=== PATIENT | male | born 1945 | race Caucasian/White ===

== ENCOUNTER 2016-10-14 17:33 | Inpatient (IN) | payer OTHER, MEDICARE ==
[~2016-10-14] VITALS: Ht 175.3 cm; Wt 81.0 kg
[2016-10-14 17:51] VITALS: BP 107/56; PULSE 102; RESP 20; TEMP 100.2
[2016-10-14] MEDS ORDERED: SODIUM CHLORIDE 0.9% FLUSH 10 ML FLUSH IVF PRN (18:15)
--- NOTE | 2016-10-14 18:18 | PD ---
HPI Chief Complaint: Medical Clearance Time Seen by Provider: 17:55 Travel History International Travel<30 days: No Contact w/Intl Traveler<30days: No Traveled to known affect area: No History of Present Illness HPI This is a 71 -year-old male with a history of hypertension, recent anemia who was undergoing an colonoscopy and upper endoscopy today. Shortly after waking up from anesthesia, he vomited and aspirated. The patient presents here with complaints of pleuritic left sided chest/lung pain and shortness of breath. He also has some mild hemoptysis. The patient denies any fevers although has a low -grade temperature here. He states this happened this afternoon. There are no other symptoms at the time of my examination. He was given Levaquin and nebulizer treatments at the surgery Center prior to being sent here. [facility] Social History Alcohol Use: No Tobacco Use: No Substance Use: No Allergies-Medications (Allergen,Severity, Reaction): Coded Allergies: No Known Allergies (Unverified , 10/14/16) Reported Meds & Prescriptions Reported Meds & Active Scripts Active Reported Metformin (Metformin HCl) 500 Mg Tab 250 Mg PO BID With meals Tizanidine (Tizanidine HCl) 4 Mg Tab 4 Mg PO TID PRN Tamsulosin (Tamsulosin HCl) 0.4 Mg Cap 0.4 Mg PO DAILY Crestor (Rosuvastatin Calcium) 40 Mg Tab 40 Mg PO DAILY Pantoprazole (Pantoprazole Sodium) 40 Mg Tab 40 Mg PO DAILY Review of Systems Except as stated in HPI: all other systems reviewed are Neg General / Constitutional: No: Fever, Chills HENT: No: Headaches, Lightheadedness, Neck Pain Cardiovascular: Positive: Chest Pain or Discomfort Respiratory: Positive: Shortness of Breath (mild), Hemoptysis, No: Cough Gastrointestinal: Positive: Vomiting (after anesthesia), No: Nausea, Abdominal Pain ( during his procedure) Musculoskeletal: No: Weakness, Pain Neurologic: No: Weakness, Dizziness, Headache Physical Exam Narrative GENERAL: Well-nourished, well-developed patient, in no acute respiratory distress. The patient is noted to be coughing. He did have an episode where he coughed up some blood-tinged phlegm. SKIN: Focused skin assessment warm/dry. HEAD: Normocephalic/atraumatic. EYES: No scleral icterus. No injection or drainage. NECK: Supple, trachea midline. No JVD or lymphadenopathy. CARDIOVASCULAR: Regular rate and rhythm without murmurs, gallops, or rubs. RESPIRATORY: Breath sounds equal bilaterally. Questionable wheezes heard at the left lung base. GASTROINTESTINAL: Abdomen soft, non-tender, nondistended. MUSCULOSKELETAL: No cyanosis, or edema. NEUROLOGICAL: Awake and alert. Cranial nerves II through XII intact. Motor grossly within normal limits. Five out of 5 muscle strength in all muscle groups. Normal speech. Data Data Last Documented VS Vital Signs Date Time Temp Pulse Resp B/P Pulse Ox O2 Delivery O2 Flow Rate FiO2 10/14/16 18:22 98 10/14/16 18:22 Nasal Cannula 2 10/14/16 17:51 100.2 102 20 107/56 Orders Complete Blood Count With Diff (10/14/16 18:01) Comprehensive Metabolic Panel (10/14/16 18:01) Iv Access Insert/Monitor (10/14/16 18:01) Ecg Monitoring (10/14/16 18:01) Oximetry (10/14/16 18:01) Oxygen Administration (10/14/16 18:01) Chest, Pa & Lat (10/14/16 18:01) Sodium Chloride 0.9% Flush (Ns Flush) (10/14/16 18:15) Albuterol Neb (Albuterol Neb) (10/14/16 18:15) Admit Order (Ed Use Only) (10/14/16 19:36) Labs Laboratory Tests Test 10/14/16 18:10 White Blood Count 7.7 TH/MM3 Red Blood Count 5.74 MIL/MM3 Hemoglobin 12.2 GM/DL Hematocrit 39.3 % Mean Corpuscular Volume 68.4 FL Mean Corpuscular Hemoglobin 21.3 PG Mean Corpuscular Hemoglobin 31.1 % Concent Red Cell Distribution Width 16.2 % Platelet Count 258 TH/MM3 Mean Platelet Volume 7.2 FL Neutrophils (%) (Auto) 89.9 % Lymphocytes (%) (Auto) 6.0 % Monocytes (%) (Auto) 3.4 % Eosinophils (%) (Auto) 0.2 % Basophils (%) (Auto) 0.5 % Neutrophils # (Auto) 6.9 TH/MM3 Lymphocytes # (Auto) 0.5 TH/MM3 Monocytes # (Auto) 0.3 TH/MM3 Eosinophils # (Auto) 0.0 TH/MM3 Basophils # (Auto) 0.0 TH/MM3 CBC Comment DIFF FINAL Differential Comment Sodium Level 140 MEQ/L Potassium Level 3.8 MEQ/L Chloride Level 105 MEQ/L Carbon Dioxide Level 25.9 MEQ/L Anion Gap 9 MEQ/L Blood Urea Nitrogen 9 MG/DL Creatinine 0.92 MG/DL Estimat Glomerular Filtration 81 ML/MIN Rate Random Glucose 80 MG/DL Calcium Level 8.6 MG/DL Total Bilirubin 0.7 MG/DL Aspartate Amino Transf 24 U/L (AST/SGOT) Alanine Aminotransferase 25 U/L (ALT/SGPT) Alkaline Phosphatase 40 U/L Total Protein 6.9 GM/DL Albumin 3.4 GM/DL MDM Medical Decision Making Medical Screen Exam Complete: Yes Emergency Medical Condition: Yes Differential Diagnosis Pneumonitis versus aspiration pneumonia versus pneumothorax Narrative Course 71-year-old male presents after he had an episode of emesis and aspirated while waking up from his GI procedure. The patient has a low-grade temperature here. His white blood cell count is normal. He has a left lower lobe pneumonia on x -ray. He been previously given Levaquin at the surgery Center. The case was discussed with Dr. Bai who admitted the patient to the hospitalist service. Diagnosis Primary Impression: Aspiration pneumonia Additional Impression: reported anemia Admitting Information Admitting Physician Requests: Admit Hussain Cox MD Oct 14, 2016 18:18
[2016-10-14 18:22] VITALS: O2SAT 98
[2016-10-14] MEDS: RESP: ALBUTEROL 2.5 MG/3 ML NEB (SCH) INH ×2 (18:30→18:34)
[2016-10-14 18:33] LABS: AUTOMATED NEUTROPHIL # 6.9 TH/MM3 (1.8-7.7); BASOPHIL % 0.5 % (0.0-2.0); EOSINOPHIL % 0.2 % (0.0-4.0); HEMATOCRIT 39.3 % (39.0-51.0); HEMO FLAGS DIFF FINAL; LYMPHOCYTE # 0.5 TH/MM3 (1.0-4.8); MEAN CELL VOLUME 68.4 FL (80.0-100.0); MEAN CORPUSCULAR HEMOGLOBIN 21.3 PG (27.0-34.0); MEAN CORPUSCULAR HGB CONC 31.1 % (32.0-36.0); MONO % 3.4 % (0.0-8.0); NEUT % 89.9 % (16.0-70.0); PLATELET COUNT 258 TH/MM3 (150-450); RED BLOOD COUNT 5.74 MIL/MM3 (4.50-5.90); RED CELL DISTRIBUTION WIDTH 16.2 % (11.6-17.2); WHITE BLOOD COUNT 7.7 TH/MM3 (4.0-11.0)
[2016-10-14] MEDS ORDERED: TIZA4TAB PO (18:33)
[2016-10-14] MEDS ORDERED: TAMS0.4C4 PO (18:33)
[2016-10-14] MEDS ORDERED: METF500T PO (18:33)
[2016-10-14] MEDS ORDERED: PANT40TA3 PO (18:33)
[2016-10-14] MEDS ORDERED: ROSU40 PO (18:33)
--- NOTE | 2016-10-14 18:52 | RADRPT ---
EXAM DATE/TIME: 10/14/2016 18:25 [place] COMPARISON: No previous studies available for comparison. INDICATIONS : Pain with breathing, possible aspiration during endoscopy. MEDICAL HISTORY : None. SURGICAL HISTORY : None. ENCOUNTER: Initial ACUITY: 1 day PAIN SCORE: 5/10 LOCATION: Left lower chest FINDINGS: Degenerative changes of the spine and cardiomegaly. There is consolidation in the left lower lobe and left midlung. No effusion. CONCLUSION: Left lower lobe airspace disease. Lalo Del Cid MD on October 14, 2016 at 18:50 Board Certified Radiologist. This report was verified electronically.
[2016-10-14 18:55] LABS: ALT (GPT) 25 U/L (12-78); ANION GAP 9 MEQ/L (5-15); AST (GOT) 24 U/L (15-37); BICARBONATE 25.9 MEQ/L (21.0-32.0); BLOOD UREA NITROGEN 9 MG/DL (7-18); CHLORIDE 105 MEQ/L (98-107); GLOMERULAR FILTRATION RATE 81 ML/MIN (>89); POTASSIUM 3.8 MEQ/L (3.5-5.1); SODIUM (NA) 140 MEQ/L (136-145)
[2016-10-14 18:57] LABS: ALKALINE PHOSPHATASE 40 U/L (45-117); TOTAL BILIRUBIN ADULT 0.7 MG/DL (0.2-1.0)
[2016-10-14 19:47] VITALS: BP 106/57; PULSE 108; RESP 20; O2SAT 92
--- NOTE | 2016-10-14 19:59 | HHI.HP ---
[facility] No Primary Care Physician Admission Diagnosis Aspiration pneumia, Diagnoses: (1) Sepsis Diagnosis: Principal (2) PNA (pneumonia) Diagnosis: Principal (3) Dehydration Diagnosis: Principal (4) DM (diabetes mellitus) Diagnosis: Principal Travel History International Travel<30 Days: No Contact w/Intl Traveler <30 Da: No Traveled to Known Affected Are: No History of Present Illness This is a 71-year-old male with a PMH of HTN who was [facility] of likely Aspiration PNA following EGD. Pt underwent EGD and had episode of nausea/vomiting following anesthesia w/ aspiration. +SOB, +wheezing. S/p Levaquin and Solu-Medrol prior to transfer. On arrival, BP 107 or 56, HR 102, O2 sat 98% on 2L NC, Temp 100.2. WBC normal however elevated neutrophil count. Chemistry unremarkable except for GFR 81. CXR with left lower lobe and left mid lung infiltrate. Review of Systems Except as stated in HPI: all other systems reviewed are Neg ROS: 14 point review of systems otherwise negative. Past Family Social History Past Medical History PMH: HTN Past Surgical History PAST SURGICAL HISTORY: Tonsillectomy, Cholecystectomy Allergies: Coded Allergies: No Known Allergies (Unverified , 10/14/16) Family History PAST FAMILY HISTORY: Reviewed. No h/o DM or CAD Social History PAST SOCIAL HISTORY: Negative for alcohol, tobacco or drugs. Physical Exam Vital Signs Vital Signs Date Time Temp Pulse Resp B/P Pulse Ox O2 Delivery O2 Flow Rate FiO2 10/14/16 19:47 108 20 106/57 92 Nasal Cannula 2 10/14/16 18:22 98 10/14/16 18:22 Nasal Cannula 2 10/14/16 17:51 100.2 102 20 107/56 Physical Exam PE: GENERAL: Pleasant elderly white male in no acute distress. HEENT: PERRLA, EOMI. No scleral icterus or conjunctival pallor. No lid lag or facial droop. CARDIOVASCULAR: Regular rate and rhythm. No obvious murmurs to auscultation. No chest tenderness to palpation. RESPIRATORY: No obvious rhonchi or wheezing. Clear to auscultation. Breath sounds equal bilaterally. GASTROINTESTINAL: Abdomen soft, non-tender, nondistended. BS normal. MUSCULOSKELETAL: Extremities without clubbing, cyanosis, or edema. No obvious deformities. NEUROLOGICAL: Awake, alert and oriented x4. No focal neurologic deficits. Moving both upper and lower extremities spontaneously. Laboratory Laboratory Tests Test 10/14/16 18:10 White Blood Count 7.7 Red Blood Count 5.74 Hemoglobin 12.2 Hematocrit 39.3 Mean Corpuscular Volume 68.4 Mean Corpuscular Hemoglobin 21.3 Mean Corpuscular Hemoglobin 31.1 Concent Red Cell Distribution Width 16.2 Platelet Count 258 Mean Platelet Volume 7.2 Neutrophils (%) (Auto) 89.9 Lymphocytes (%) (Auto) 6.0 Monocytes (%) (Auto) 3.4 Eosinophils (%) (Auto) 0.2 Basophils (%) (Auto) 0.5 Neutrophils # (Auto) 6.9 Lymphocytes # (Auto) 0.5 Monocytes # (Auto) 0.3 Eosinophils # (Auto) 0.0 Basophils # (Auto) 0.0 CBC Comment DIFF FINAL Differential Comment Sodium Level 140 Potassium Level 3.8 Chloride Level 105 Carbon Dioxide Level 25.9 Anion Gap 9 Blood Urea Nitrogen 9 Creatinine 0.92 Estimat Glomerular Filtration 81 Rate Random Glucose 80 Calcium Level 8.6 Total Bilirubin 0.7 Aspartate Amino Transf 24 (AST/SGOT) Alanine Aminotransferase 25 (ALT/SGPT) Alkaline Phosphatase 40 Total Protein 6.9 Albumin 3.4 Result Diagram: 10/14/16180910/14/161809 Assessment and Plan Problem List: (1) Sepsis ICD Code: A41.9 Status: Acute (2) PNA (pneumonia) ICD Code: J18.9 Status: Acute (3) Dehydration ICD Code: E86.0 Status: Acute (4) DM (diabetes mellitus) ICD Code: E11.9 Status: Acute Assessment and Plan A/P: 1. Sepsis: Temp 100.2, HR 102, WBC normal however elevated neutrophil count, Source-PNA. Check Blood Cultures, continue IV Abx. 2. PNA: s/p EGD w/ aspiration post-procedure, CXR w/ LLL and left midlung infiltrates, images reviewed by me. S/p Levaquin, Solu-Medrol prior to arrival. Check Blood Cultures, continue IV Abx. DuoNeb prn, Mucinex, Symbicort. 3. Dehydration: GFR 81, BUN/Creatinine normal. IVF for hydration, repeat labs in am. 4. DM: Sliding scale w/ Accu-Cheks. Hold Metformin for now. 5. DVT Prophylaxis: SCD/Teds. 6. Social work for d/c planning as needed. 7. Case discussed w/ ER physician at length. Physician Certification 2 Midnight Certification Type: Admission for Inpatient Services Order for Inpatient Services The services are ordered in accordance with Medicare regulations or non- Medicare payer requirements, as applicable. In the case of services not specified as inpatient-only, they are appropriately provided as inpatient services in accordance with the 2-midnight benchmark. Estimated LOS (days): 2 days is the estimated time the patient will need to remain in the hospital, assuming treatment plan goals are met and no additional complications. Post-Hospital Plan: Not yet determined Sheeba Ren MD Oct 14, 2016 19:59
[2016-10-14] MEDS ORDERED: ACETAMINOPHEN 325 MG TAB PO PRN (20:00)
[2016-10-14] MEDS ORDERED: Vancomycin Consult Pharmacy 1 EA OTHER SCH (20:00)
[2016-10-14] MEDS ORDERED: DEXTROSE 50% IN WATER 50 ML VIAL(D50) IV PRN (20:00)
[2016-10-14] MEDS ORDERED: MORPHINE SULFATE 4 MG/ML INJ IV PRN (20:00)
[2016-10-14] MEDS ORDERED: ACETAMINOPHEN/HYDROcodone 325 MG/5 MG TAB PO PRN (20:00)
[2016-10-14] MEDS ORDERED: BISACODYL 10 MG SUPP RECTAL PRN (20:00)
[2016-10-14] MEDS ORDERED: LACTULOSE SYRUP 20 GM/30 ML CUP PO PRN (20:00)
[2016-10-14] MEDS ORDERED: RESP: ALBUTEROL 2.5 MG/IPRATROPIUM 0.5 MG NEB (PRN) NEB (20:00)
[2016-10-14] MEDS ORDERED: SENNOSIDES 8.6 MG TAB PO PRN (20:00)
[2016-10-14] MEDS ORDERED: SODIUM CHLORIDE 0.9% FLUSH 10 ML FLUSH IV FLUSH PRN (20:00)
[2016-10-14] MEDS ORDERED: ONDANSETRON HCL 4 MG/2 ML VIAL IVP PRN (20:00)
[2016-10-14] MEDS ORDERED: MAGNESIUM HYDROXIDE SUSP 30 ML CUP PO PRN (20:00)
[2016-10-14] MEDS ORDERED: GLUCAGON 1 MG/ML VIAL OTHER PRN (20:00)
[2016-10-14] MEDS: SODIUM CHLOR 0.9% 1000 ML INJ 1,000 ML IV SCH (20:23)
[2016-10-14 21:30] VITALS: BP 103/65; PULSE 95; RESP 16; TEMP 98.7; O2SAT 94
[2016-10-14 21:47] VITALS: PULSE 96
[2016-10-14] MEDS: PIPERACIL-TAZO 4.5 GM PREMIX 100 ML IV SCH (21:59)
[2016-10-14] MEDS: guaiFENesin E.R. 600 MG TAB PO SCH (21:59)
[2016-10-14] MEDS: VANCOMYCIN INJ 1,200 MG in SODIUM CHLOR 0.9% 250 ML INJ 250 ML IV SCH (21:59)
[2016-10-14] MEDS: BUDESONIDE-FORMOTEROL 160/4.5 MCG INHALER INH SCH (21:59)
[2016-10-14] MEDS: SODIUM CHLORIDE 0.9% FLUSH 10 ML FLUSH IV FLUSH SCH (22:00)
[2016-10-14] MEDS: INSULIN ASPART SUPPLEMENTAL SCALE SQ SCH (22:01)
[2016-10-14] MEDS: DOCUSATE SODIUM 50 MG/SENNA 8.6 MG TAB PO SCH (22:01)
[2016-10-15] VITALS (7 sets, daily range): BP systolic 94–121; BP diastolic 57–68; PULSE 56–86; RESP 16–18; TEMP 98.1–99.7; O2SAT 94–96
[2016-10-15] MEDS: PIPERACIL-TAZO 4.5 GM PREMIX 100 ML IV SCH ×4 (03:20→20:21)
[2016-10-15] MEDS: SODIUM CHLOR 0.9% 1000 ML INJ 1,000 ML IV SCH (05:52)
[2016-10-15] MEDS: INSULIN ASPART SUPPLEMENTAL SCALE SQ SCH ×4 (06:23→20:20)
[2016-10-15 07:48] LABS: AUTOMATED NEUTROPHIL # 9.3 TH/MM3 (1.8-7.7); BASOPHIL % 0.4 % (0.0-2.0); EOSINOPHIL # 0.1 TH/MM3 (0-0.4); EOSINOPHIL % 0.5 % (0.0-4.0); HEMATOCRIT 34.9 % (39.0-51.0); HEMO FLAGS DIFF FINAL; LYMPH % 13.7 % (9.0-44.0); LYMPHOCYTE # 1.7 TH/MM3 (1.0-4.8); MEAN CELL VOLUME 68.2 FL (80.0-100.0); MEAN CORPUSCULAR HGB CONC 30.8 % (32.0-36.0); MONO % 9.8 % (0.0-8.0); NEUT % 75.6 % (16.0-70.0); PLATELET COUNT 241 TH/MM3 (150-450); RED BLOOD COUNT 5.11 MIL/MM3 (4.50-5.90); RED CELL DISTRIBUTION WIDTH 16.5 % (11.6-17.2); WHITE BLOOD COUNT 12.3 TH/MM3 (4.0-11.0)
[2016-10-15 08:10] LABS: ALT (GPT) 22 U/L (12-78); ANION GAP 6 MEQ/L (5-15); AST (GOT) 18 U/L (15-37); BICARBONATE 27.8 MEQ/L (21.0-32.0); BLOOD UREA NITROGEN 11 MG/DL (7-18); CHLORIDE 106 MEQ/L (98-107); GLOMERULAR FILTRATION RATE 70 ML/MIN (>89); POTASSIUM 4.2 MEQ/L (3.5-5.1); SODIUM (NA) 140 MEQ/L (136-145)
[2016-10-15 08:13] LABS: ALKALINE PHOSPHATASE 33 U/L (45-117); TOTAL BILIRUBIN ADULT 1.2 MG/DL (0.2-1.0)
[2016-10-15] MEDS ORDERED: NON-FORMULARY DRUG (Rosuvastatin (Crestor) 40 MG) PO SCH (09:00)
[2016-10-15] MEDS: VANCOMYCIN INJ 1,200 MG in SODIUM CHLOR 0.9% 250 ML INJ 250 ML IV SCH (09:09)
[2016-10-15] MEDS: SODIUM CHLORIDE 0.9% FLUSH 10 ML FLUSH IV FLUSH SCH ×2 (09:10→20:19)
[2016-10-15] MEDS: TAMSULOSIN HCL 0.4 MG CAP PO SCH (09:10)
[2016-10-15] MEDS: PANTOPRAZOLE SOD 40 MG DELAYED RELEASE TAB PO SCH (09:10)
[2016-10-15] MEDS: guaiFENesin E.R. 600 MG TAB PO SCH ×2 (09:10→20:19)
[2016-10-15] MEDS: DOCUSATE SODIUM 50 MG/SENNA 8.6 MG TAB PO SCH ×2 (09:10→20:18)
[2016-10-15] MEDS: ATORVASTATIN 80 MG TAB PO SCH (09:10)
[2016-10-15] MEDS: BUDESONIDE-FORMOTEROL 160/4.5 MCG INHALER INH SCH ×2 (11:01→20:20)
--- NOTE | 2016-10-15 12:40 | HHI.PR ---
Subjective Remarks Follow-up pneumonia. States he is doing better having pleuritic left sided chest pain. Denies shortness of breath. Still on 2 L nasal cannula. Out of bed to bathroom. Discussed with RN Objective Vitals Vital Signs Date Time Temp Pulse Resp B/P Pulse Ox O2 Delivery O2 Flow Rate FiO2 10/15/16 12:27 95 Nasal Cannula 1.00 10/15/16 11:33 98.8 71 18 109/63 95 10/15/16 08:00 98.1 68 18 109/68 95 10/15/16 04:15 98.1 81 16 98/57 95 10/15/16 00:15 98.9 86 16 105/63 94 10/14/16 21:47 96 10/14/16 21:30 98.7 95 16 103/65 94 10/14/16 19:47 108 20 106/57 92 Nasal Cannula 2 10/14/16 18:22 98 10/14/16 18:22 Nasal Cannula 2 10/14/16 17:51 100.2 102 20 107/56 I/O 10/14/16 10/14/16 10/14/16 10/15/16 10/15/16 10/15/16 07:00 15:00 23:00 07:00 15:00 23:00 Intake Total 240 ml 1219 ml Output Total 800 ml Balance 240 ml 419 ml Intake Oral 240 ml 240 ml IV Total 979 ml Output Urine Total 800 ml # Voids 0 1 # Bowel Movements 0 0 Result Diagram: 10/15/16 0708 10/15/16 0708 Imaging Last Impressions Chest X-Ray 10/14/16 1801 Signed Impressions: Service Date/Time: Friday, October 14, 2016 18:25 - CONCLUSION: Left lower lobe airspace disease. Lalo Del Cid MD Objective Remarks Well-developed, well-nourished in no distress on nasal cannula Regular rate and rhythm Clear lungs decreased breath sounds left lung Alert and oriented 3 nonfocal Procedures Non- A/P Problem List: (1) Sepsis ICD Code: A41.9 Status: Acute (2) PNA (pneumonia) ICD Code: J18.9 Status: Acute (3) Dehydration ICD Code: E86.0 Status: Resolved (4) DM (diabetes mellitus) ICD Code: E11.9 Status: Chronic Assessment and Plan 1. Sepsis: Today has leukocytosis status post steroid. Blood cultures negative to date. 2. PNA: s/p EGD w/ aspiration post-procedure, CXR w/ LLL and left midlung infiltrates, images reviewed by me. S/p Levaqdaniel, Solu-Medrol prior to arrival. Complaining of pleuritic pain. Continue IV vancomycin and Zosyn, DuoNeb prn, Mucinex, Symbicort. Pain management with Lortab and IV morphine 3. Dehydration: Improved discontinue IV fluids 4. DM: Sliding scale w/ Accu-Cheks. Restart Metformin for now. 5. DVT Prophylaxis: SCD/Teds. Patient ambulatory Discharge Planning Possible discharge in the morning Rainer Serrano MD Oct 15, 2016 12:40
[2016-10-15] MEDS ORDERED: ALBUAER3 INH (12:43)
[2016-10-15] MEDS ORDERED: HYDR-3516 PO (12:43)
[2016-10-15] MEDS: metFORMIN HCL 500 MG TAB PO SCH (20:18)
[2016-10-16 00:03] VITALS: BP 124/74; PULSE 79; RESP 18; TEMP 99.4; O2SAT 95
[2016-10-16 00:15] VITALS: PULSE 81
[2016-10-16] MEDS: PIPERACIL-TAZO 4.5 GM PREMIX 100 ML IV SCH ×2 (02:18→09:04)
[2016-10-16 04:06] VITALS: BP 105/63; PULSE 75; RESP 18; TEMP 99.9; O2SAT 95
[2016-10-16] MEDS ORDERED: VANCOMYCIN 1,500 MG/NS 500 ML IV SCH ×2 (06:00)
[2016-10-16 07:00] LABS: AUTOMATED NEUTROPHIL # 7.5 TH/MM3 (1.8-7.7); BASOPHIL # 0.1 TH/MM3 (0-0.2); BASOPHIL % 0.9 % (0.0-2.0); EOSINOPHIL # 0.2 TH/MM3 (0-0.4); EOSINOPHIL % 2.4 % (0.0-4.0); HEMATOCRIT 34.2 % (39.0-51.0); HEMO FLAGS DIFF FINAL; LYMPH % 14.7 % (9.0-44.0); LYMPHOCYTE # 1.5 TH/MM3 (1.0-4.8); MEAN CELL VOLUME 68.6 FL (80.0-100.0); MEAN CORPUSCULAR HEMOGLOBIN 21.1 PG (27.0-34.0); MEAN CORPUSCULAR HGB CONC 30.7 % (32.0-36.0); MONO % 9.9 % (0.0-8.0); NEUT % 72.1 % (16.0-70.0); PLATELET COUNT 248 TH/MM3 (150-450); RED BLOOD COUNT 4.98 MIL/MM3 (4.50-5.90); RED CELL DISTRIBUTION WIDTH 16.7 % (11.6-17.2); WHITE BLOOD COUNT 10.3 TH/MM3 (4.0-11.0)
[2016-10-16] MEDS: INSULIN ASPART SUPPLEMENTAL SCALE SQ SCH ×2 (07:00→11:24)
[2016-10-16 07:21] LABS: ALT (GPT) 18 U/L (12-78); ANION GAP 6 MEQ/L (5-15); AST (GOT) 16 U/L (15-37); BICARBONATE 26.1 MEQ/L (21.0-32.0); BLOOD UREA NITROGEN 10 MG/DL (7-18); CHLORIDE 105 MEQ/L (98-107); GLOMERULAR FILTRATION RATE 70 ML/MIN (>89); MAGNESIUM 2.3 MG/DL (1.5-2.5); POTASSIUM 4.3 MEQ/L (3.5-5.1); SODIUM (NA) 137 MEQ/L (136-145)
[2016-10-16 07:24] LABS: ALKALINE PHOSPHATASE 35 U/L (45-117); TOTAL BILIRUBIN ADULT 0.9 MG/DL (0.2-1.0)
[2016-10-16 08:00] VITALS: BP 110/68; PULSE 106; PULSE 86; RESP 20; TEMP 98.8; O2SAT 91
[2016-10-16] MEDS: BUDESONIDE-FORMOTEROL 160/4.5 MCG INHALER INH SCH (08:58)
[2016-10-16] MEDS: SODIUM CHLORIDE 0.9% FLUSH 10 ML FLUSH IV FLUSH SCH (08:58)
[2016-10-16] MEDS: TAMSULOSIN HCL 0.4 MG CAP PO SCH (08:59)
[2016-10-16] MEDS: ATORVASTATIN 80 MG TAB PO SCH (08:59)
[2016-10-16] MEDS: metFORMIN HCL 500 MG TAB PO SCH (08:59)
[2016-10-16] MEDS: guaiFENesin E.R. 600 MG TAB PO SCH (08:59)
[2016-10-16] MEDS: PANTOPRAZOLE SOD 40 MG DELAYED RELEASE TAB PO SCH (08:59)
[2016-10-16] MEDS: DOCUSATE SODIUM 50 MG/SENNA 8.6 MG TAB PO SCH (09:00)
[2016-10-16] MEDS ORDERED: AUGM875T3 PO (10:59)
--- NOTE | 2016-10-16 11:00 | HHI.DCPOC ---
Discharge Care Plan Diagnosis: (1) Aspiration pneumonia Your Health Problems Are: Difficulty with ADL Exercise Tolerance Goals to Promote Your Health * To prevent worsening of your condition and complications * To maintain your health at the optimal level Directions to Meet Your Goals Take your medications as prescribed Follow your dietary instruction Follow activity as directed Keep your appointments as scheduled Take your immunizations and boosters as scheduled If your symptoms worsen call your PCP, if no PCP go to Urgent Care Center or Emergency Room Smoking is Dangerous to Your Health. Avoid second hand smoke Call the 24-hour hour crisis hotline for domestic abuse at Rainer Serrano MD Oct 16, 2016 10:59
--- NOTE | 2016-10-16 11:00 | HHI.FF ---
Face to Face Verification Diagnosis: (1) Aspiration pneumonia Home Health Nursing Order: Oxygen administration education Nursing assessment with vital signs I have seen patient Jose Cintron on 10/16/16. My clinical findings support the need for the requested home health care services because: Patient has SOB I certify that my clinical findings support that this patient is homebound because: Need for psychosocial assistance Rainer Serrano MD Oct 16, 2016 11:00
[2016-10-16] MEDS ORDERED: AMOXICILLIN/CLAVULANATE K 875 MG TAB PO ONE (11:45)
--- NOTE | 2016-10-16 11:48 | HHI.PR ---
Subjective Remarks Follow-up pneumonia. States he is doing much better with improving pleuritic pain. Cough is minimal refusing antitussives. Understands he needs to have a follow-up chest x-ray in 6 weeks. Discussed with RN Objective Vitals Vital Signs Date Time Temp Pulse Resp B/P Pulse Ox O2 Delivery O2 Flow Rate FiO2 10/16/16 11:25 95 Room Air 10/16/16 09:13 Nasal Cannula 2.00 10/16/16 08:00 98.8 106 20 110/68 91 10/16/16 04:06 99.9 75 18 105/63 95 10/16/16 00:15 81 10/16/16 00:03 99.4 79 18 124/74 95 10/15/16 20:15 99.7 71 18 121/66 95 10/15/16 20:00 81 10/15/16 20:00 95 Room Air 10/15/16 16:00 99.4 75 18 94/57 96 10/15/16 12:27 95 Nasal Cannula 1.00 I/O 10/15/16 10/15/16 10/15/16 10/16/16 10/16/16 10/16/16 07:00 15:00 23:00 07:00 15:00 23:00 Intake Total 1219 ml 1760 ml 240 ml 480 ml Output Total 800 ml 1150 ml 300 ml Balance 419 ml 1760 ml 240 ml -670 ml -300 ml Intake Oral 240 ml 960 ml 240 ml 480 ml IV Total 979 ml 800 ml Output Urine Total 800 ml 1150 ml 300 ml # Voids 1 3 3 # Bowel Movements 0 2 1 0 1 Result Diagram: 10/16/1661810/16/16618 Objective Remarks Well-developed, well-nourished in no distress on room air Regular rate and rhythm Clear lungs decreased breath sounds left lung Alert and oriented 3 nonfocal No significant change in physical exam from previous Procedures None A/P Problem List: (1) Sepsis ICD Code: A41.9 Status: Acute (2) PNA (pneumonia) ICD Code: J18.9 Status: Acute (3) Dehydration ICD Code: E86.0 Status: Resolved (4) DM (diabetes mellitus) ICD Code: E11.9 Status: Chronic Assessment and Plan 1. Sepsis: Resolved. Blood cultures negative to date. 2. PNA: s/p EGD w/ aspiration post-procedure, CXR w/ LLL and left midlung infiltrates, images reviewed by me. S/p Levaquin, Solu-Medrol prior to arrival. Improving with less pleuritic pain. Switch IV vancomycin and Zosyn to Augmentin first dose today, DuoNeb prn, Mucinex, Symbicort. Pain management with Lortab and IV morphine. Passed walk test. Ambulating in the hallway 3. Dehydration: Improved discontinue IV fluids 4. DM: Sliding scale w/ Accu-Cheks. Stable on metformin. 5. DVT Prophylaxis: SCD/Teds. Patient ambulatory Discharge Planning State stable for discharge Rainer Serrano MD Oct 16, 2016 11:48
--- NOTE | 2016-10-16 11:49 | HHI.DS ---
Discharge Summary Admission Date Oct 14, 2016 at 19:38 Discharge Date: Oct 16, 2016 Admitting Diagnosis Aspiration pneumia, (1) Sepsis ICD Code: A41.9 Diagnosis: Principal (2) PNA (pneumonia) ICD Code: J18.9 Diagnosis: Principal (3) Dehydration ICD Code: E86.0 Diagnosis: Principal (4) DM (diabetes mellitus) ICD Code: E11.9 Diagnosis: Secondary Procedures None Brief History - From Admission This is a 71-year-old male with a PMH of HTN who was [facility] of likely Aspiration PNA following EGD. Pt underwent EGD and had episode of nausea/vomiting following anesthesia w/ aspiration. +SOB, +wheezing. S/p Levaquin and Solu-Medrol prior to transfer. On arrival, BP 107 or 56, HR 102, O2 sat 98% on 2L NC, Temp 100.2. WBC normal however elevated neutrophil count. Chemistry unremarkable except for GFR 81. CXR with left lower lobe and left mid lung infiltrate. CBC/BMP: 10/16/16 0619 10/16/16 0619 Significant Findings Laboratory Tests Test 10/14/16 10/15/16 10/16/16 18:10 07:08 06:19 Hemoglobin 12.2 GM/DL 10.8 GM/DL 10.5 GM/DL (13.0-17.0) (13.0-17.0) (13.0-17.0) Mean Corpuscular Volume 68.4 FL 68.2 FL 68.6 FL (80.0-100.0) (80.0-100.0) (80.0-100.0) Mean Corpuscular Hemoglobin 21.3 PG 21.0 PG 21.1 PG (27.0-34.0) (27.0-34.0) (27.0-34.0) Mean Corpuscular Hemoglobin 31.1 % 30.8 % 30.7 % Concent (32.0-36.0) (32.0-36.0) (32.0-36.0) Neutrophils (%) (Auto) 89.9 % 75.6 % 72.1 % (16.0-70.0) (16.0-70.0) (16.0-70.0) Lymphocytes (%) (Auto) 6.0 % (9.0-44.0) Lymphocytes # (Auto) 0.5 TH/MM3 (1.0-4.8) Estimat Glomerular Filtration 81 ML/MIN (>89) 70 ML/MIN (>89) 70 ML/MIN (>89) Rate Alkaline Phosphatase 40 U/L (45-117) 33 U/L (45-117) 35 U/L (45-117) White Blood Count 12.3 TH/MM3 (4.0-11.0) Hematocrit 34.9 % 34.2 % (39.0-51.0) (39.0-51.0) Monocytes (%) (Auto) 9.8 % (0.0-8.0) 9.9 % (0.0-8.0) Neutrophils # (Auto) 9.3 TH/MM3 (1.8-7.7) Monocytes # (Auto) 1.2 TH/MM3 1.0 TH/MM3 (0-0.9) (0-0.9) Total Bilirubin 1.2 MG/DL (0.2-1.0) Total Protein 6.1 GM/DL (6.4-8.2) Albumin 3.0 GM/DL 3.0 GM/DL (3.4-5.0) (3.4-5.0) Imaging Last Impressions Chest X-Ray 10/14/16 1801 Signed Impressions: Service Date/Time: Friday, October 14, 2016 18:25 - CONCLUSION: Left lower lobe airspace disease. Lalo Del Cid MD PE at Discharge Well-developed, well-nourished in no distress on room air Regular rate and rhythm Clear lungs decreased breath sounds left lung Alert and oriented 3 nonfocal No significant change in physical exam from previous Hospital Course 1. Sepsis: Resolved. Blood cultures negative to date. 2. PNA: s/p EGD w/ aspiration post-procedure, CXR w/ LLL and left midlung infiltrates, images reviewed by me. S/p Levaquin, Solu-Medrol prior to arrival. Improving with less pleuritic pain. Switch IV vancomycin and Zosyn to Augmentin first dose today, DuoNeb prn, Mucinex, Symbicort. Pain management with Lortab and IV morphine. Passed walk test. Ambulating in the hallway 3. Dehydration: Improved discontinue IV fluids 4. DM: Sliding scale w/ Accu-Cheks. Stable on metformin. 5. DVT Prophylaxis: SCD/Teds. Patient ambulatory Pt Condition on Discharge: Stable Discharge Disposition: Discharge Home Discharge Time: > 30 minutes Discharge Instructions DIET: Follow Instructions for: Diabetic Diet Activities you can perform: Regular-No Restrictions Activities to Avoid: Driving Follow up Referrals: PCP Follow-up - 2-3 Days New Orders: X-RAY CHEST PA & LAT - 6 Weeks New Medications: Albuterol 8.5 GM Inh (Proair Hfa 8.5 GM Inh) 90 Mcg/Act Aer 1 PUFF INH Q4H 108 mcg/actuation PRN SHORTNESS OF BREATH #1 Ref 0 INHALER Amoxicillin-Clavulanate (Augmentin) 875-125 Mg Tab 1 TAB PO BID Infection #16 Ref 0 TAB Hydrocodone-Acetaminophen (Hydrocodone-Acetaminophen) 5-325 mg Tab 1 TAB PO Q6HR PRN PAIN SCALE 3 TO 5 #28 TAB Continued Medications: Metformin (Metformin) 500 Mg Tab 250 MG PO BID With meals Blood Sugar Management #60 Ref 0 TAB Pantoprazole (Pantoprazole) 40 Mg Tab 40 MG PO DAILY Reflux #30 Ref 0 TAB Rosuvastatin (Crestor) 40 Mg Tab 40 MG PO DAILY Cholesterol Management #30 Ref 0 TAB Tamsulosin (Tamsulosin) 0.4 Mg Cap 0.4 MG PO DAILY Manage Prostate Problems #30 Ref 0 CAP Tizanidine (Tizanidine) 4 Mg Tab 4 MG PO TID PRN MUSCLE SPASM Ref 0 TAB Additional Information I spent 35 minutes [id number] with the patient or on the cespedes discussing the patient's disposition, prognosis, and plan of care with patient's caregivers. Over half the time spent was devoted to counseling the patient regarding placement in coordinating care with caregivers and case management. Rainer Serrano MD Oct 16, 2016 11:49
[2016-10-16 12:00] VITALS: BP 99/65; PULSE 72; RESP 20; TEMP 99.7; O2SAT 93
[2016-10-16] MEDS ORDERED: TRAM50TA PO (17:16)
[2016-10-18] MEDS ORDERED: PHARMACY ORDERED LAB ONE (05:45)
== END 2016-10-16 14:34 | disposition home health service (06) | DRG 871 ==
LOC: NEPC 17:33 → NEDA 19:38 → N06B 21:30
PROVIDERS: ADMIT Internal Medicine; ATTEND Internal Medicine
DX: A41.9 Sepsis, unspecified organism (principal); J69.0 Pneumonitis due to inhalation of food and vomit; R04.2 Hemoptysis; E11.9 Type 2 diabetes mellitus without complications; E86.0 Dehydration; I10 Essential (primary) hypertension
CPT/HCPCS: 71020; 80053; 82948; 83735; 85025; 87040; 94620; 94640; 94664; J2543; J3370; J7030; J7040; J7050; J7613